=== PATIENT | female | born 1985 | race Asian ===

== ENCOUNTER 2021-03-26 21:26 | Inpatient (IN) | payer OTHER ==
[~2021-03-26] VITALS: Ht 167.6 cm; Wt 88.6 kg
[2021-03-26] MEDS ORDERED: LIDOCAINE 1%, 20ML ONE (22:14)
[2021-03-26] MEDS ORDERED: MISOPROSTOL 200 MCG TABLET ONE (22:14)
[2021-03-26] MEDS ORDERED: TERBUTALINE 1 MG/ML, 1ML ONE (22:14)
[2021-03-26] MEDS ORDERED: ALUMINUM/MAG/SIMETHICONE 30 ML UDC PO PRN (22:30)
[2021-03-26] MEDS ORDERED: MEPERIDINE/PF 25MG/0.5ML IVPush PRN (22:30)
[2021-03-26] MEDS ORDERED: OXYTOCIN 30U/ 0.9% NaCL 500ML 500 ML IV ONE (22:30)
[2021-03-26] MEDS ORDERED: TERBUTALINE 1 MG/ML, 1ML SQ PRN (22:30)
[2021-03-26] MEDS ORDERED: CALCIUM CARBONATE 500 MG TAB.CHEW PO PRN (22:30)
[2021-03-26] MEDS ORDERED: LACTATED RINGERS 1,000 ML IV SCH (22:30)
[2021-03-26] MEDS ORDERED: METOCLOPRAMIDE 5 MG/ML, 2ML IVPush PRN (22:30)
[2021-03-26] MEDS ORDERED: ALBUTEROL SULFATE 2.5 MG/3 ML NPPB PRN (22:30)
[2021-03-26] MEDS ORDERED: hydrALAzine 20 MG/ML, 1ML IV PRN (22:30)
[2021-03-26] MEDS ORDERED: OXYcodone 5 MG/5 ML ORAL.SOL UDC PO PRN (22:30)
[2021-03-26] MEDS ORDERED: LABETALOL 5MG/ML, 20ML IV PRN (22:30)
[2021-03-26] MEDS ORDERED: TERBUTALINE 1 MG/ML, 1ML IVPush PRN (22:30)
[2021-03-26] MEDS ORDERED: EPHEDRINE 50 MG/ML, 1ML IVPush PRN ×2 (22:30)
[2021-03-26] MEDS ORDERED: PLEASE ENTER ALLERGIES MC SCH (22:30)
[2021-03-26] MEDS ORDERED: METOPROLOL 1 MG/ML, 5ML IV PRN (22:30)
[2021-03-26] MEDS ORDERED: MIDAZOLAM 1 MG/ML, 2ML IV PRN (22:30)
[2021-03-26] MEDS ORDERED: SODIUM CITRATE/CITRIC ACID 30 ML UDC PO PRN (22:30)
[2021-03-26] MEDS ORDERED: LACTATED RINGERS 1,000 ML IVBOLUS PRN (22:30)
[2021-03-26] MEDS ORDERED: PROMETHAZINE 25 MG/ML, 1ML IV PRN (22:30)
[2021-03-26] MEDS ORDERED: NALOXONE 0.4 MG/ML, 1ML IVPush PRN (22:30)
[2021-03-26] MEDS ORDERED: ONDANSETRON 2MG/ML, 2ML IVPush PRN ×2 (22:30)
[2021-03-26] MEDS ORDERED: FENTANYL/BUPIV./NS/PF 250 ML EPIDCONT SCH (22:30)
[2021-03-26] MEDS ORDERED: HYDROcodone/APAP 7.5-325MG/15ML UDC PO PRN (22:30)
[2021-03-26] MEDS ORDERED: FENTANYL PF 100 MCG/2ML IV PRN ×2 (22:30)
[2021-03-26] MEDS ORDERED: FENTANYL PF 100 MCG/2ML IVPush PRN (22:30)
[2021-03-26] MEDS ORDERED: HYDROmorphone 2 MG/ML, 1ML IVPush PRN (22:30)
[2021-03-26] MEDS ORDERED: FENTANYL PF 100 MCG/2ML ONE (22:31)
[2021-03-26 22:45] LABS: BASOPHILS % (AUTO) 1 % (0-1); EOSINOPHILS % (AUTO) 1 % (1-7); LYMPHOCYTES % (AUTO) 21 % (22-44); MEAN CORPUSCULAR HEMOGLOBIN 29.9 pg (27.0-34.8); MEAN CORPUSCULAR HGB CONC 34.2 g/dL (32.4-35.8); MEAN PLATELET VOLUME 7.5 fL (7.4-10.4); MONOCYTES % (AUTO) 8 % (2-9); NEUTROPHILS % (AUTO) 70 % (42-75); PLATELET COUNT 264 x10^3/uL (130-400); RED CELL DISTRIBUTION WIDTH 13.4 % (9.6-15.2)
[2021-03-26] MEDS ORDERED: BUPIVACAINE 0.25% ONE (23:01)
[2021-03-26] MEDS ORDERED: FENTANYL/BUPIV./NS/PF 250 ML EPIDCONT ONE (23:01)
[2021-03-26] MEDS ORDERED: METOCLOPRAMIDE 5 MG/ML, 2ML ONE (23:52)
[2021-03-26] MEDS ORDERED: SODIUM CITRATE/CITRIC ACID 15 ML UDC ONE (23:52)
[2021-03-27] MEDS ORDERED: SODIUM CITRATE/CITRIC ACID 30 ML UDC PO ONE
[2021-03-27] MEDS ORDERED: METOCLOPRAMIDE 5 MG/ML, 2ML IV ONE
[2021-03-27] MEDS ORDERED: LACTATED RINGERS 1,000 ML IVBOLUS ONE
[2021-03-27] MEDS ORDERED: FENTANYL PF 100 MCG/2ML ONE ×2 (00:02→00:03)
[2021-03-27] MEDS ORDERED: OXYTOCIN 10 UNITS/ML, 1ML ONE (00:02)
[2021-03-27] MEDS ORDERED: DEXAMETHASONE 4 MG/ML, 1ML ONE (00:02)
[2021-03-27] MEDS ORDERED: SUCCINYLCHOLINE 20 MG/ML, 10ML ONE (00:02)
[2021-03-27] MEDS ORDERED: EPHEDRINE 50 MG/ML, 1ML ONE (00:02)
[2021-03-27] MEDS ORDERED: ONDANSETRON 2MG/ML, 2ML ONE (00:02)
[2021-03-27] MEDS ORDERED: PROPOFOL 10 MG/ML, 20ML ONE (00:02)
[2021-03-27] MEDS ORDERED: PHENYLEPHRINE 10 MG/ML ONE (00:02)
[2021-03-27] MEDS ORDERED: KETOROLAC 30 MG/1 ML ONE (00:02)
[2021-03-27] MEDS ORDERED: CEFAZOLIN 1,000 MG ONE (00:02)
[2021-03-27] MEDS ORDERED: NEWBORN KIT ONE (00:35)
[2021-03-27] MEDS ORDERED: HYDROmorphone 2 MG/ML, 1ML ONE (00:59)
[2021-03-27] MEDS ORDERED: OXYTOCIN 30U/ 0.9% NaCL 500ML 500 ML ONE (01:54)
[2021-03-27] MEDS ORDERED: OXYcodone/APAP 5/325MG TABLET PO PRN (02:00)
[2021-03-27] MEDS ORDERED: CARBOPROST TROMETHAMINE 250 MCG/ML, 1ML IM PRN (02:00)
[2021-03-27] MEDS ORDERED: TRANEXAMIC ACID 100 MG/ML, 10ML IV ONE (02:00)
[2021-03-27] MEDS: LACTATED RINGERS 1,000 ML IV SCH ×6 (02:00→22:00)
[2021-03-27] MEDS ORDERED: ONDANSETRON 2MG/ML, 2ML IV PRN (02:00)
[2021-03-27] MEDS ORDERED: CALCIUM CARBONATE 500 MG TAB.CHEW PO PRN (02:00)
[2021-03-27] MEDS ORDERED: ACETAMINOPHEN 325 MG TABLET PO PRN (02:00)
[2021-03-27] MEDS ORDERED: MEASLES,MUMPS&RUBELLA VACC/PF 0.5 ML SQ-VACC PRN (02:00)
[2021-03-27] MEDS ORDERED: METHYLERGONOVINE 0.2 MG/ML IM PRN (02:00)
[2021-03-27] MEDS: OXYTOCIN 30U/ 0.9% NaCL 500ML 500 ML IV SCH ×3 (02:00→22:00)
[2021-03-27 04:30] VITALS: BP 99/64
[2021-03-27 08:59] LABS: BASOPHILS % (AUTO) 0 % (0-1); EOSINOPHILS % (AUTO) 0 % (1-7); LYMPHOCYTES % (AUTO) 7 % (22-44); MEAN CORPUSCULAR HGB CONC 34.3 g/dL (32.4-35.8); MEAN PLATELET VOLUME 7.3 fL (7.4-10.4); MONOCYTES % (AUTO) 4 % (2-9); NEUTROPHILS % (AUTO) 89 % (42-75); PLATELET COUNT 227 x10^3/uL (130-400); RED BLOOD COUNT 4.21 x10^6/uL (3.82-5.3); RED CELL DISTRIBUTION WIDTH 13.3 % (9.6-15.2)
[2021-03-27 09:00] VITALS: BP 102/62
[2021-03-27] MEDS: SIMETHICONE 80 MG CHEW TAB PO PRN (09:21)
[2021-03-27] MEDS: IBUPROFEN 800 MG TABLET PO PRN ×2 (09:21→17:03)
[2021-03-27] MEDS: DOCUSATE 100 MG CAPSULE PO PRN ×2 (09:21→20:59)
[2021-03-27] MEDS: PRENATAL VIT/IRON/FA 1 EACH TABLET PO SCH (09:21)
[2021-03-27 12:58] VITALS: BP 96/57
[2021-03-27 16:12] VITALS: BP 95/62
[2021-03-27 16:42] VITALS: BP 89/57
[2021-03-27 19:30] VITALS: BP 95/59
[2021-03-27] MEDS: OXYcodone IR 5MG TABLET PO PRN (21:00)
[2021-03-28] MEDS: IBUPROFEN 800 MG TABLET PO PRN ×3 (00:57→16:49)
[2021-03-28] MEDS: OXYcodone IR 5MG TABLET PO PRN ×4 (00:57→23:02)
[2021-03-28 01:04] VITALS: BP 100/61
[2021-03-28] MEDS: LACTATED RINGERS 1,000 ML IV SCH (02:00)
[2021-03-28 03:18] VITALS: BP 97/64
[2021-03-28 07:25] VITALS: BP 94/61
[2021-03-28] MEDS: DOCUSATE 100 MG CAPSULE PO PRN ×2 (08:41→23:02)
[2021-03-28] MEDS: PRENATAL VIT/IRON/FA 1 EACH TABLET PO SCH (08:41)
[2021-03-28 19:15] VITALS: BP 99/58
[2021-03-28] MEDS: SIMETHICONE 80 MG CHEW TAB PO PRN (23:02)
[2021-03-29] MEDS: IBUPROFEN 800 MG TABLET PO PRN ×2 (04:05→13:40)
[2021-03-29 07:25] VITALS: BP 95/62
[2021-03-29] MEDS: PRENATAL VIT/IRON/FA 1 EACH TABLET PO SCH (09:44)
[2021-03-29] MEDS ORDERED: IBUP-1223 PO (13:33)
[2021-03-29] MEDS ORDERED: DOCU-131 PO (13:33)
[2021-03-29] MEDS ORDERED: OXYC1TAB14 PO (13:33)
[2021-03-29] MEDS: OXYcodone IR 5MG TABLET PO PRN (13:40)
== END 2021-03-29 16:45 | disposition home or self-care (01) | DRG 788 ==
LOC: LDOP 21:26 → LDIP 22:01 → 2NW 03-27 04:03
PROVIDERS: ADMIT Obstetrics & Gynecology; ATTEND Obstetrics & Gynecology
PROC: 10D00Z1 Extraction of Products of Conception, Low, Open Approach (ICD-10-PCS; principal; 2021-03-27)
DX: O32.2XX0 Maternal care for transverse and oblique lie, not applicable or unspecified (principal); Z37.0 Single live birth; Z3A.39 39 weeks gestation of pregnancy; O09.523 Supervision of elderly multigravida, third trimester; Z20.822 Contact with and (suspected) exposure to COVID-19
CPT/HCPCS: 36415; 85025; 86592; 86850; 86900; 87635; G0378; J0690; J1100; J1170; J1885; J2405; J2704; J3010; J0330; J2370; J2590; J2765; J7120